=== PATIENT | female | born 1955 | race Two or more races ===

== ENCOUNTER 2017-03-23 09:31 | Inpatient (IN) | payer MEDICARE, OTHER ==
[2017-03-18 12:45] VITALS: BMI 37.8
[2017-03-23] MEDS ORDERED: Lactated Ringer's 1,000 ML IV ONE ×3 (10:48→13:51)
[2017-03-23] MEDS ORDERED: ceFAZolin IV 2 gm in Dextrose 1 GM/50 ML BAG IVPB ONE (10:56)
[2017-03-23] MEDS ORDERED: Bupivacaine HCl 0.5% PF (10 ml) Inj ONE (10:56)
[2017-03-23] MEDS ORDERED: Lidocaine 1% Inj (20ml) ONE (10:57)
[2017-03-23] MEDS ORDERED: Propofol 10 mg/ml Inj (20 ML) ONE (11:32)
[2017-03-23] MEDS ORDERED: Midazolam 2 MG/2 ML VIAL ONE (11:32)
[2017-03-23] MEDS ORDERED: Phenylephrine 10 mg/ml Inj ONE (12:22)
[2017-03-23] MEDS: HYDROmorphone 0.5 mg/0.5 ml ISec IVP PRN ×2 (13:04→13:29)
[2017-03-23] MEDS ORDERED: ceFAZolin 1 GM in Sodium Chloride 0.9% 50 ML IVPB SCH (14:00)
[2017-03-23 16:58] VITALS: RESP 20
--- NOTE | 2017-03-23 18:07 | OP ---
PROCEDURE DATE: 03/23/2017 PREOPERATIVE DIAGNOSIS: A 10 x 14 cm soft tissue mass on the left arm. POSTOPERATIVE DIAGNOSIS: A 10 x 14 cm soft tissue mass on the left arm. PROCEDURE: Wide deep excision (radical resection) of soft tissue neoplasm on the left arm. SURGEON: Jose Eduardo Hernandez MD TYPE OF ANESTHESIA: General. ESTIMATED BLOOD LOSS: 80 mL POSTOPERATIVE CONDITION: Stable. 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 She is taken in staged repair and will have the left side repaired today. DESCRIPTION OF PROCEDURE: The patient was taken to the operating room, general anesthesia was administered and the left shoulder arm, forearm and left upper extremity were prepped and draped. A generous elliptical incision was made in the arm surrounding the mass. Tissue flaps were raised using the Bovie and a large resection was performed down to the facial layer. Bleeding was controlled using the Bovie. The basilic vein was now noted to be bleeding and was repaired with a Prolene suture. The wound was irrigated with copious amount of saline solution. An approximately 56 sq cm adjacent tissue transfer closure was performed by widely mobilizing the tissue flaps and using an advancement flap closure of multiple layers of Monocryl, subcuticular Monocryl and skin clips. The patient tolerated the procedure well, returned to recovery room in stable condition. ADDENDUM: A Rafi-Preciado Drain was left in the wound and then brought out through a lateral stab wound. Jose Eduardo Hernandez MD
[2017-03-23] MEDS: ceFAZolin IV 1 gm in Dextrose 1 GM/50 ML BAG IVPB SCH (22:38)
[2017-03-23] MEDS: Oxycodone/Acetaminophen 5/325 mg Tab PO PRN (22:40)
[2017-03-23] MEDS: Enoxaparin 30 mg Syringe SC SCH (22:42)
[2017-03-24] MEDS: ceFAZolin IV 1 gm in Dextrose 1 GM/50 ML BAG IVPB SCH ×3 (06:13→21:38)
[2017-03-24 06:27] LABS: BASO # 0.1 K/uL (0.0-0.2); BASO % 0.7 % (0.0-2.0); EOS # 0.7 K/uL (0.0-0.7); EOS % 9.2 % (0.0-4.0); HEMATOCRIT 29.9 % (34.0-47.0); LYMPH # 1.4 K/uL (1.0-4.3); LYMPH % 17.1 % (20.0-40.0); MEAN CORPUSCULAR HEMOGLOBIN 29.3 pg (27.0-31.0); MEAN CORPUSCULAR HGB CONC 32.5 g/dL (33.0-37.0); MEAN PLATELET VOLUME 9.9 fL (7.2-11.7); MONO % 12.8 % (0.0-10.0); RED CELL DISTRIBUTION WIDTH 13.6 % (11.5-14.5)
[2017-03-24 07:31] LABS: POTASSIUM 4.7 mmol/L (3.6-5.2)
[2017-03-24 07:35] LABS: CALCIUM 8.4 mg/dl (8.6-10.4)
[2017-03-24] MEDS: Enoxaparin 30 mg Syringe SC SCH ×2 (09:43→21:38)
[2017-03-24] MEDS: Oxycodone/Acetaminophen 5/325 mg Tab PO PRN (14:31)
--- NOTE | 2017-03-24 14:39 | CP.PCM.CON ---
History of Present Illness - History of Present Illness History of Present Illness: CC: resection of wound left arm tumor HPI: mobidly obese AA woman s/p OR pt is mostly drowsy, does not give any information Review of Systems - Review of Systems Systems not reviewed;Unavailable: Acuity of Condition Past Patient History - Past Medical History & Family History Past Medical History?: Yes - Past Social History Smoking Status: Never Smoked - CARDIAC Hx Cardiac Disorders: Yes Hx Angina: Yes Hx Cardia Arrhythmia: Yes (Pacemaker) Hx Hypertension: Yes Hx Pacemaker: Yes - PULMONARY Hx Respiratory Disorders: Yes Hx Bronchitis: Yes - NEUROLOGICAL Hx Neurological Disorder: Yes Hx Dizziness: Yes - HEENT Hx HEENT Problems: No - RENAL Hx Chronic Kidney Disease: No - ENDOCRINE/METABOLIC Hx Endocrine Disorders: No - HEMATOLOGICAL/ONCOLOGICAL Hx Blood Disorders: No - INTEGUMENTARY Hx Dermatological Problems: No - MUSCULOSKELETAL/RHEUMATOLOGICAL Hx Falls: No - GASTROINTESTINAL Hx Gastrointestinal Disorders: No - GENITOURINARY/GYNECOLOGICAL Hx Genitourinary Disorders: No - PSYCHIATRIC Hx Substance Use: No - SURGICAL HISTORY Hx Surgeries: No Hx Cardiac Catheterization: Yes (14 years ago) Hx Joint Replacement: Yes (Right knee) Other/Comment: Hx right knee sx - ANESTHESIA Hx Anesthesia: Yes Hx Anesthesia Reactions: No Hx Malignant Hyperthermia: No Has any member of the family had a problem w/ anesthesia?: No Meds Allergies/Adverse Reactions: Allergies Allergy/AdvReac Type Severity Reaction Status Date / Time No Known Allergies Allergy Verified 02/07/15 18:02 - Medications Medications: Current Medications Docusate Sodium (Colace) 100 mg PO BID [facility] Last Admin: 03/24/17 09:43 Dose: 100 mg Enoxaparin Sodium (Lovenox) 30 mg SC 1000,2200 [facility] Last Admin: 03/24/17 09:43 Dose: 30 mg Cefazolin Sodium/Dextrose (Ancef Iv 1 Gm Duplex) 1 gm in 50 mls @ 100 mls/hr IVPB Q8H [facility] Last Admin: 03/24/17 14:31 Dose: 100 mls/hr Ondansetron HCl (Zofran Inj) 4 mg IVP Q6 PRN PRN Reason: Nausea/Vomiting Oxycodone/Acetaminophen (Percocet 5/325 Mg Tab) 2 tab PO Q4H PRN PRN Reason: pain Stop: 03/26/17 12:37 Last Admin: 03/24/17 14:31 Dose: 2 tab Pantoprazole Sodium (Protonix Inj) 40 mg IVP DAILY [facility] Last Admin: 03/24/17 09:47 Dose: 40 mg Physical Exam - Constitutional Appears: No Acute Distress - Eye Exam Eye Exam: EOMI, Normal appearance, PERRL Pupil Exam: NORMAL ACCOMODATION, PERRL - Respiratory Exam Respiratory Exam: Clear to Auscultation Bilateral, NORMAL BREATHING PATTERN - GI/Abdominal Exam GI & Abdominal Exam: Normal Bowel Sounds, Soft. absent: Tenderness - Rectal Exam Rectal Exam: Deferred Results - Vital Signs Recent Vital Signs: Last Vital Signs Temp 98.0 F 03/24/17 08:56 Pulse 78 03/24/17 08:56 Resp 20 03/24/17 08:56 BP 117/71 03/24/17 08:56 Pulse Ox 98 03/24/17 08:56 - Labs Result Diagrams: 03/24/17 06:21 03/24/17 06:21 Labs: Laboratory Results - last 24 hr 03/24/17 03/24/17 06:21 06:21 WBC 8.0 RBC 3.32 L Hgb 9.7 L D Hct 29.9 L MCV 90.0 MCH 29.3 MCHC 32.5 L RDW 13.6 Plt Count 154 MPV 9.9 Neut % (Auto) 60.2 Lymph % (Auto) 17.1 L [place] % (Auto) 12.8 H Eos % (Auto) 9.2 H Baso % (Auto) 0.7 Neut # 4.8 Lymph # 1.4 [place] # 1.0 H Eos # 0.7 Baso # 0.1 Sodium 132 Potassium 4.7 Chloride 97 L Carbon Dioxide 26 Anion Gap 14 BUN 37 H Creatinine 1.7 H Est GFR ( Amer) 37 Est GFR (Non-Af Amer) 30 Random Glucose 96 Calcium 8.4 L Assessment & Plan (1) S/P skin neoplasm resection Status: Acute (2) Obesity (BMI 30-39.9) Status: Chronic
--- NOTE | 2017-03-24 23:28 | CP.PCM.PN ---
Subjective - Date & Time of Evaluation Date of Evaluation: 03/24/17 Time of Evaluation: 10:50 - Subjective Subjective: Pt seen & examined, s/p surgery on left ar, she is refusing second follow up surgery for resection of tumor, her B.P is on lower side despite being Hypertensive, i adjusted the medications Objective - Vital Signs/Intake and Output Vital Signs (last 24 hours): Temp Pulse Resp BP Pulse Ox 97.7 F 77 20 117/58 L 96 03/24/17 16:03 03/24/17 16:03 03/24/17 16:03 03/24/17 17:39 03/24/17 16:03 Intake and Output: 03/24/17 03/25/17 18:59 06:59 Intake Total 350 Output Total 2 Balance 348 - Medications Medications: Current Medications Allopurinol (Zyloprim) 300 mg PO DAILY [facility] Docusate Sodium (Colace) 100 mg PO BID [facility] Last Admin: 03/24/17 17:39 Dose: Not Given Enoxaparin Sodium (Lovenox) 30 mg SC 1000,2200 [facility] Last Admin: 03/24/17 21:38 Dose: 30 mg Furosemide (Lasix) 20 mg PO DAILY [facility] Last Admin: 03/24/17 17:39 Dose: Not Given Cefazolin Sodium/Dextrose (Ancef Iv 1 Gm Duplex) 1 gm in 50 mls @ 100 mls/hr IVPB Q8H [facility] Last Admin: 03/24/17 21:38 Dose: 100 mls/hr Methotrexate (Methotrexate) 2.5 mg PO QWK [facility] Oxycodone/Acetaminophen (Percocet 5/325 Mg Tab) 2 tab PO Q4H PRN PRN Reason: pain Stop: 03/26/17 12:37 Last Admin: 03/24/17 14:31 Dose: 2 tab Pantoprazole Sodium (Protonix Inj) 40 mg IVP DAILY [facility] Last Admin: 03/24/17 09:47 Dose: 40 mg Rosuvastatin Calcium (Crestor) 5 mg PO HS [facility] Last Admin: 03/24/17 21:38 Dose: 5 mg Sotalol HCl (Betapace) 80 mg PO BID [facility] Last Admin: 03/24/17 17:39 Dose: Not Given - Labs Labs: 03/24/17 06:21 03/24/17 06:21 - Constitutional Appears: No Acute Distress - Head Exam Head Exam: ATRAUMATIC, NORMAL INSPECTION, NORMOCEPHALIC - Eye Exam Eye Exam: EOMI, Normal appearance, PERRL Pupil Exam: NORMAL ACCOMODATION, PERRL - Respiratory Exam Respiratory Exam: Decreased Breath Sounds, Rales, Rhonchi - Cardiovascular Exam Cardiovascular Exam: REGULAR RHYTHM, +S1, +S2. absent: Murmur - GI/Abdominal Exam GI & Abdominal Exam: Soft, Normal Bowel Sounds. absent: Tenderness - Rectal Exam Rectal Exam: Deferred Assessment and Plan (1) S/P skin neoplasm resection Status: Acute (2) Obesity (BMI 30-39.9) Status: Chronic (3) HTN (hypertension) Assessment & Plan: D/C norvasc Status: Acute
[2017-03-25] MEDS: ceFAZolin IV 1 gm in Dextrose 1 GM/50 ML BAG IVPB SCH ×2 (06:50→13:48)
[2017-03-25 07:23] LABS: BASO % 0.4 % (0.0-2.0); EOS # 0.6 K/uL (0.0-0.7); EOS % 9.9 % (0.0-4.0); HEMATOCRIT 28.7 % (34.0-47.0); LYMPH # 1.2 K/uL (1.0-4.3); LYMPH % 19.2 % (20.0-40.0); MEAN CELL VOLUME 88.7 fL (81.0-99.0); MEAN CORPUSCULAR HEMOGLOBIN 29.2 pg (27.0-31.0); MEAN PLATELET VOLUME 9.4 fL (7.2-11.7); MONO % 15.9 % (0.0-10.0); RED CELL DISTRIBUTION WIDTH 13.6 % (11.5-14.5); WHITE BLOOD COUNT 6.2 K/uL (4.8-10.8)
[2017-03-25 07:57] LABS: POTASSIUM 3.9 mmol/L (3.6-5.2)
[2017-03-25 08:00] LABS: CALCIUM 8.8 mg/dl (8.6-10.4)
[2017-03-25 08:55] VITALS: TEMP 98
[2017-03-25] MEDS: Enoxaparin 30 mg Syringe SC SCH (10:22)
[2017-03-25] MEDS: Oxycodone/Acetaminophen 5/325 mg Tab PO PRN (11:51)
[2017-03-25 16:07] VITALS: BP 187/75; PULSE 83; O2SAT 98
[2017-03-25] MEDS ORDERED: Sotalol 40 mg Tab PO SCH (18:00)
--- NOTE | 2017-03-25 23:01 | CP.PCM.DIS ---
Provider - Provider Date of Admission: 03/23/17 12:36 Attending physician: Jose Eduardo Hernandez MD Diagnosis - Discharge Diagnosis (1) S/P skin neoplasm resection Status: Acute (2) Obesity (BMI 30-39.9) Status: Chronic (3) HTN (hypertension) Status: Acute Hospital Course - Lab Results Lab Results: Most Recent Lab Values WBC 6.2 K/uL (4.8-10.8) 03/25/17 07:07 RBC 3.23 Mil/uL (3.80-5.20) L 03/25/17 07:07 Hgb 9.5 g/dL (11.0-16.0) L 03/25/17 07:07 Hct 28.7 % (34.0-47.0) L 03/25/17 07:07 MCV 88.7 fL (81.0-99.0) 03/25/17 07:07 MCH 29.2 pg (27.0-31.0) 03/25/17 07:07 MCHC 33.0 g/dL (33.0-37.0) 03/25/17 07:07 RDW 13.6 % (11.5-14.5) 03/25/17 07:07 Plt Count 161 K/uL (130-400) 03/25/17 07:07 MPV 9.4 fL (7.2-11.7) 03/25/17 07:07 Neut % (Auto) 54.6 % (50.0-75.0) 03/25/17 07:07 Lymph % (Auto) 19.2 % (20.0-40.0) L 03/25/17 07:07 [place] % (Auto) 15.9 % (0.0-10.0) H 03/25/17 07:07 Eos % (Auto) 9.9 % (0.0-4.0) H 03/25/17 07:07 Baso % (Auto) 0.4 % (0.0-2.0) 03/25/17 07:07 Neut # 3.4 K/uL (1.8-7.0) 03/25/17 07:07 Lymph # 1.2 K/uL (1.0-4.3) 03/25/17 07:07 [place] # 1.0 K/uL (0.0-0.8) H 03/25/17 07:07 Eos # 0.6 K/uL (0.0-0.7) 03/25/17 07:07 Baso # 0.0 K/uL (0.0-0.2) 03/25/17 07:07 Sodium 132 mmol/L (132-148) 03/25/17 07:07 Potassium 3.9 mmol/L (3.6-5.2) 03/25/17 07:07 Chloride 99 mmol/L (98-107) 03/25/17 07:07 Carbon Dioxide 22 mmol/L (22-30) 03/25/17 07:07 Anion Gap 15 (10-20) 03/25/17 07:07 BUN 38 mg/dL (7-17) H 03/25/17 07:07 Creatinine 1.5 mg/dL (0.7-1.2) H 03/25/17 07:07 Est GFR ( Amer) 42 03/25/17 07:07 Est GFR (Non-Af Amer) 35 03/25/17 07:07 Random Glucose 102 mg/dL (65-105) 03/25/17 07:07 Calcium 8.8 mg/dl (8.6-10.4) 03/25/17 07:07 Discharge Exam - Head Exam Head Exam: ATRAUMATIC, NORMAL INSPECTION, NORMOCEPHALIC Discharge Plan - Follow Up Plan Condition: GOOD Disposition: HOME/ ROUTINE Instructions: Pain Management After Surgery (DC), Excision of Skin Lesion (DC) Additional Instructions: Follow up with Dr Mary Murry 03/30 9:45am Keep dressing dry will remove in office percocet for pain Referrals: Jose Eduardo Hernandez MD [Staff Provider] -
== END 2017-03-25 15:50 | disposition home or self-care (01) | DRG 572 ==
LOC: C.SDS 09:31 → C.9S 12:36 → C.6T 16:24
PROVIDERS: ADMIT Surgery; ATTEND Surgery
PROC: 0JBF0ZZ Excision of Left Upper Arm Subcutaneous Tissue and Fascia, Open Approach (ICD-10-PCS; principal; 2017-03-23 10:00)
DX: D17.22 Benign lipomatous neoplasm of skin and subcutaneous tissue of left arm (principal); I10 Essential (primary) hypertension; E66.9 Obesity, unspecified; Z68.37 Body mass index [BMI] 37.0-37.9, adult; Z95.0 Presence of cardiac pacemaker; Z96.60 Presence of unspecified orthopedic joint implant

== ENCOUNTER 2017-05-19 09:27 | Emergency (ER) | payer MEDICARE, OTHER ==
[2017-05-19 09:27] VITALS: BMI 37.8
[2017-05-19 10:22] LABS: BASO % 0.3 % (0.0-2.0); EOS # 0.4 K/uL (0.0-0.7); EOS % 5.1 % (0.0-4.0); HEMATOCRIT 30.8 % (34.0-47.0); LYMPH % 12.2 % (20.0-40.0); MEAN CORPUSCULAR HEMOGLOBIN 28.6 pg (27.0-31.0); MEAN CORPUSCULAR HGB CONC 33.1 g/dL (33.0-37.0); MEAN PLATELET VOLUME 8.8 fL (7.2-11.7); MONO # 0.9 K/uL (0.0-0.8); MONO % 10.8 % (0.0-10.0); RED CELL DISTRIBUTION WIDTH 15.3 % (11.5-14.5); WHITE BLOOD COUNT 8.3 K/uL (4.8-10.8)
[2017-05-19 10:34] LABS: MEAN CELL VOLUME 86.4 fL (81.0-99.0)
[2017-05-19 10:36] LABS: ALB/GLOB RATIO 1.2 (1.0-2.1); BILIRUBIN,TOTAL 0.7 mg/dL (0.2-1.3); CALCIUM 8.4 mg/dl (8.6-10.4); POTASSIUM 3.4 mmol/L (3.6-5.2); TOTAL PROTEIN 6.8 g/dL (6.3-8.3)
--- NOTE | 2017-05-19 10:42 | C.PDOC ---
History Of Present Illness 61 year old female sent to the ED by her PMD Dr. Christina for evaluation of left arm pain. Patient reports left arm became painful over the weekend. Dr. Christina apparently did ultrasound at office which showed possible abscess. Patient is S /P surgery for removal of a mass in her upper left arm, done by Dr. Hernandez on 03/23/17. Patient denies fever, injuries, CP, SOB, rash, sensory changes. Time Seen by Provider: 05/19/17 09:47 Chief Complaint (Nursing): Upper Extremity Problem/Injury History Per: Patient History/Exam Limitations: no limitations Onset/Duration Of Symptoms: Days Current Symptoms Are (Timing): Still Present Quality: "Pain" Severity: Moderate Additional History Per: Patient Past Medical History Reviewed: Historical Data, Nursing Documentation, Vital Signs Vital Signs: Last Vital Signs Temp 98.0 F 05/19/17 16:00 Pulse 75 05/19/17 16:00 Resp 18 05/19/17 16:00 BP 140/74 05/19/17 16:00 Pulse Ox 96 05/19/17 16:02 - Medical History PMH: Bronchitis, Cardia Arrhythmia (Pacemaker), HTN Surgical History: Endoscopy, Pacemaker (2011) - [facility] Procedures EXCISION OF L UP ARM SUBCU/FASCIA, OPEN APPROACH (03/23/17) Family History: States: No Known Family Hx - Social History Hx Alcohol Use: No Hx Substance Use: No Review Of Systems Except As Marked, All Systems Reviewed And Found Negative. Constitutional: Negative for: Fever, Chills Cardiovascular: Negative for: Chest Pain, Palpitations Respiratory: Negative for: Cough, Shortness of Breath Gastrointestinal: Negative for: Nausea, Vomiting, Abdominal Pain Musculoskeletal: Positive for: Arm Pain (Left ) Skin: Negative for: Rash Neurological: Negative for: Weakness, Numbness Physical Exam - Physical Exam Appears: Well, Non-toxic, No Acute Distress, Other (Morbidly obese) Skin: Normal Color, Warm, Dry Head: Normacephalic Oral Mucosa: Moist Neck: Supple Cardiovascular: Rhythm Regular Respiratory: Normal Breath Sounds, No Rales, No Rhonchi, No Wheezing Gastrointestinal/Abdominal: Normal Exam, Bowel Sounds, Soft, No Tenderness, Other (Obese) Back: No CVA Tenderness Extremity: Normal ROM, Capillary Refill (< 2 seconds all digits ), No Deformity , No Swelling, Other (Left upper anterior arm approx 6 cm well healed surgical scar with small central eschar, mildly tender to palpation, (+) mild induration , no erythema/drainage. ) Pulses: Left Radial: Normal, Right Radial: Normal Neurological/Psych: Oriented x3, Normal Motor, Normal Sensation ED Course And Treatment - Laboratory Results Result Diagrams: 05/19/17 10:16 05/19/17 10:16 O2 Sat by Pulse Oximetry: 96 (On RA) Pulse Ox Interpretation: Normal - CT Scan/US CT extremities Other Rad Studies (CT/US): Interpreted By Me, Read By Radiologist, Radiology Report Reviewed CT/US Interpretation: ADDENDUM: Please note error in the original dictation. Fluid collection suspected to reflect an abscess resides within the subcutaneous soft tissues of the upper extremity at the level of the mid forearm ventral and lateral. [ Addendum Report Added by Shirley Knox MD at 05/19/2017 13:32:23 ]. Indication: Evaluate for abscess. CT of the left upper extremity with IV contrast. Comparison: None available. Technique: Noncontrast axial images of the left upper extremity, forearm. Sagittal and coronal reformatted images were generated and reviewed. This CT exam was performed using 1 or more of the falling dose reduction techniques: Automated exposure control, adjustment of the MAA and/or kV according to patient size, and /or use of iterative reconstruction technique. Total exam DLP: 400.66. Contrast: 75 mL Visipaque IV. Findings: There is an approximately 2.7 x 3.6 cm collection noted within the subcutaneous soft tissues of the upper extremity , midforearm medially. This collection appears consistent with fluid with mild peripheral increased density ; possibly abscess. Adjacent subcutaneous edema evident. No acute displaced fracture. No dislocation. Impression: 2.7 x 3.6 cm collection within the subcutaneous soft tissues of the upper extremity within the mid arm medially, possibly abscess. Adjacent subcutaneous edema evident. Correlate clinically. Progress Note: Plan: Blood work, CT ext ordered and reviewed. Patient states she does not want to be seen by original surgeon Dr. Hernandez - will discuss with surgery bell spinner sousaphones. 1:45pm- Discussed patient with surgery resident, will call me back. 3:55pm- Patient is s/p drainage of abscess by surgery resident , wound culture obtained by them. Will give patient PO antibiotics and instructed her to follow up with Dr. Gomez in the office within 1 week. She understands she should return to ED if symptoms worsen. Reassessment Condition: Improved Disposition Counseled Patient/Family Regarding: Studies Performed, Diagnosis, Need For Followup, Rx Given - Disposition Referrals: Landen Gomez MD [Staff Provider] - Nathanael Christina DO [Staff Provider] - Disposition: HOME/ ROUTINE Disposition Time: 16:00 Condition: STABLE Additional Instructions: FOLLOW UP WITH DR GOMEZ IN THE OFFICE WITHIN 1 WEEK RETURN TO ER IF SYMPTOMS WORSEN Prescriptions: Cephalexin [Keflex] 500 mg PO BID #14 capsule Sulfamethoxazole/Trimethoprim [Bactrim DS 800 mg-160 mg] 1 tab PO BID #14 tab Instructions: Abscess (ED) Forms: [employer] (Arabic) Print Language: WOLOF - POA Present On Arrival: None - Clinical Impression Clinical Impression: Abscess - Scribe Statement The provider has reviewed the documentation as recorded by the Scribe Goran Schaeffer All medical record entries made by the Scribe were at my direction and personally dictated by me. I have reviewed the chart and agree that the record accurately reflects my personal performance of the history, physical exam, medical decision making, and the department course for this patient. I have also personally directed, reviewed, and agree with the discharge instructions and disposition.
[2017-05-19] MEDS ORDERED: Iodixanol 320 MG/ML 100 ML BOTTLE IV ONE (11:29)
--- NOTE | 2017-05-19 13:27 | CT ---
Indication: Evaluate for abscess CT of the left upper extremity with IV contrast Comparison: None available Technique: Noncontrast axial images of the left upper extremity, forearm. Sagittal and coronal reformatted images were generated and reviewed. This CT exam was performed using 1 or more of the falling dose reduction techniques: Automated exposure control, adjustment of the MAA and/or kV according to patient size, and/or use of iterative reconstruction technique. Total exam DLP: 400.66 Contrast: 75 mL Visipaque IV Findings: There is an approximately 2.7 x 3.6 cm collection noted within the subcutaneous soft tissues of the upper extremity, midforearm medially. This collection appears consistent with fluid with mild peripheral increased density ; possibly abscess. Adjacent subcutaneous edema evident. No acute displaced fracture. No dislocation. Impression: 2.7 x 3.6 cm collection within the subcutaneous soft tissues of the upper extremity within the mid arm medially, possibly abscess. Adjacent subcutaneous edema evident. Correlate clinically.
[2017-05-19] MEDS ORDERED: Lidocaine 1% 20 MG/2 ML PF AMP SC ONE (15:13)
[2017-05-19] MEDS ORDERED: Lidocaine 1% Inj (20ml) ONE (15:13)
[2017-05-19 15:21] VITALS: RESP 18
[2017-05-19] MEDS ORDERED: Tmp-Smz 800 mg-160 mg DS Tab PO STA (15:57)
--- NOTE | 2017-05-19 15:57 | CP.PCM.CON ---
History of Present Illness - History of Present Illness History of Present Illness: Surgery Consult note. Dr. Gomez. 61yo F with PMHx of HTN here with left upper extremity pain and drainage. She states that she had left upper extremity lipoma [place] [address] Chand. She requests to have a different surgeon consulted. She states that she noted some pain and clear/pink fluid draining from the left upper extremity wound for the past 5 days. She went to her PMD this morning and was told to come to the ER for further evaluation. Denies Fevers, chills. no numbness or paresthesias. No CP/SOB. no N/V/D. No headaches. PMD: Dr. Farmer PMHx: HTN PSHx: Pacemaker 2011, R Knee replacement 2009, left upper extremity lipoma removal March 2017 NKDA Past Patient History - Past Medical History & Family History Past Medical History?: Yes - Past Social History Smoking Status: Never Smoked - CARDIAC Hx Cardia Arrhythmia: Yes () Hx Hypertension: Yes Hx Pacemaker: Yes (2011) - PULMONARY Hx Bronchitis: Yes - NEUROLOGICAL Hx Neurological Disorder: Yes Hx Dizziness: Yes - HEENT Hx HEENT Problems: No - RENAL Hx Chronic Kidney Disease: No - ENDOCRINE/METABOLIC Hx Endocrine Disorders: No - HEMATOLOGICAL/ONCOLOGICAL Hx Blood Disorders: No - INTEGUMENTARY Hx Dermatological Problems: No - MUSCULOSKELETAL/RHEUMATOLOGICAL Hx Falls: No - GASTROINTESTINAL Hx Gastrointestinal Disorders: No - GENITOURINARY/GYNECOLOGICAL Hx Genitourinary Disorders: No - PSYCHIATRIC Hx Substance Use: No - SURGICAL HISTORY Hx Surgeries: Yes - ANESTHESIA Hx Anesthesia: Yes Hx Anesthesia Reactions: No Hx Malignant Hyperthermia: No Meds Home Medications: Home Medication List Medication Instructions Recorded Confirmed Type Cephalexin [Keflex] 500 mg PO BID #14 capsule 05/19/17 Rx Sulfamethoxazole/Trimethoprim 1 tab PO BID #14 tab 05/19/17 Rx [Bactrim DS 800 mg-160 mg] Allergies/Adverse Reactions: Allergies Allergy/AdvReac Type Severity Reaction Status Date / Time No Known Allergies Allergy Verified 05/19/17 09:32 Physical Exam - Constitutional Appears: Non-toxic, No Acute Distress - Head Exam Head Exam: ATRAUMATIC, NORMAL INSPECTION, NORMOCEPHALIC - Eye Exam Eye Exam: EOMI - ENT Exam ENT Exam: Mucous Membranes Moist - Respiratory Exam Respiratory Exam: NORMAL BREATHING PATTERN. absent: Accessory Muscle Use, Respiratory Distress - Cardiovascular Exam Cardiovascular Exam: absent: JVD - GI/Abdominal Exam GI & Abdominal Exam: Soft. absent: Distended, Firm, Guarding, Tenderness - Extremities Exam Extremities exam: Negative for: calf tenderness Additional comments: Left upper extremity: proximal brachial region: 8cm well healed incision noted, dried scab in the middle of the incision. Skin margins well approximated. No erythema, no induration. Slightly raised area approximately 3x4cm palpable. - Neurological Exam Neurological exam: Alert, Oriented x3 - Psychiatric Exam Psychiatric exam: Anxious - Skin Skin Exam: Dry, Intact, Normal Color, Warm Results - Vital Signs Recent Vital Signs: Last Vital Signs Temp 97.9 F 05/19/17 15:21 Pulse 76 05/19/17 15:21 Resp 18 05/19/17 15:21 BP 142/77 05/19/17 15:21 Pulse Ox 97 05/19/17 15:21 - Labs Result Diagrams: 05/19/17 10:16 05/19/17 10:16 Labs: Laboratory Results - last 24 hr 05/19/17 05/19/17 10:16 10:16 WBC 8.3 RBC 3.56 L Hgb 10.2 L Hct 30.8 L MCV 86.4 D MCH 28.6 MCHC 33.1 RDW 15.3 H Plt Count 176 MPV 8.8 Neut % (Auto) 71.6 Lymph % (Auto) 12.2 L [place] % (Auto) 10.8 H Eos % (Auto) 5.1 H Baso % (Auto) 0.3 Neut # 6.0 Lymph # 1.0 [place] # 0.9 H Eos # 0.4 Baso # 0.0 Sodium 138 Potassium 3.4 L Chloride 102 Carbon Dioxide 30 Anion Gap 9 L BUN 34 H Creatinine 1.2 Est GFR ( Amer) 55 Est GFR (Non-Af Amer) 45 Random Glucose 106 H Calcium 8.4 L Total Bilirubin 0.7 AST 29 ALT 28 Alkaline Phosphatase 96 Total Protein 6.8 Albumin 3.7 Globulin 3.1 Albumin/Globulin Ratio 1.2 Assessment & Plan - Assessment and Plan (Free Text) Assessment: 61yo F with left upper extremity seroma s/p excision of lipoma on March 23, [address] Hernandez - Written consent obtained and on chart. Performed a bedside needle aspiration of the seroma - cleaned area with clorhexidine swab - ~3cc of 1% lidocaine without epi used for local anesthesia - Approximately 18cc of serosang fluid aspirated, wound culture sent. - patient tolerated procedure well. - Discharge home with PO abx - Follow up with Dr. Gomez in his office tomorrow. (Call for appointment) further recs as per Dr. Jason Riley PGY1 surgery pager: [phone]
[2017-05-19 16:00] VITALS: O2SAT 96
[2017-05-19] MEDS ORDERED: Tmp-Smz 800 mg-160 mg DS Tab ONE (16:02)
[2017-05-19 16:03] VITALS: BP 140/74; PULSE 75; TEMP 98
== END 2017-05-19 16:09 | disposition home or self-care (01) ==
LOC: C.ER 09:27
DX: L76.34 Postprocedural seroma of skin and subcutaneous tissue following other procedure (principal); Y84.8 Other medical procedures as the cause of abnormal reaction of the patient, or of later complication, without mention of misadventure at the time of the procedure
CPT/HCPCS: 10160; 73201; 80053; 85025; 87040; 87070; 96374; 99285; J2270; Q9967

== ENCOUNTER 2018-10-19 14:34 | Observation (INO) | payer MEDICARE, MEDICAID ==
[2018-10-19 14:35] VITALS: BMI 37.8
--- NOTE | 2018-10-19 15:02 | C.PDOC ---
History Of Present Illness 63 y/o female,w/PMhx of HTN, cardiac arrhythmia ( with pacemaker), hypercholesterolemia, brought to ER by ALS for evaluation of chest pain and dizziness which occurred today.Patient states that the chest pain began at 1 pm. Patient reports that the pain is in the center of chest without radiation. She describes the pain as pressure-like. After she had the chest pain, she began having lightheadedness and pre-syncopal episode.She states that she did not have fall.She was brought in by ambulance and she was treated with ASA 325 mg PO and fluids. Patient reports that pain has mostly resolved. Denies having weakness, facial droop, slurred speech, fever,chills, neck stiffness, night sweats, nausea, vomiting, bowel/bladder incontinence, dark/bloody stools, urinary complaints, and genitourinary complaints. PMD: Referral Specialist: Time Seen by Provider: 10/19/18 14:38 Chief Complaint (Nursing): Chest Pain History Per: Patient History/Exam Limitations: no limitations Onset/Duration Of Symptoms: Hrs Current Symptoms Are (Timing): Still Present Severity: Moderate Quality: Pressure Past Medical History Reviewed: Historical Data, Nursing Documentation, Vital Signs Vital Signs: Last Vital Signs Temp 97.5 F L 10/19/18 14:58 Pulse 60 10/19/18 14:58 Resp 18 10/19/18 14:58 BP 128/42 L 10/19/18 14:58 Pulse Ox 97 10/19/18 14:58 Primary Care Provider: Nathanael Christina - Medical History PMH: Arthritis, Bronchitis, Cardia Arrhythmia (Pacemaker), HTN Denies: Chronic Kidney Disease Surgical History: Endoscopy, Pacemaker (2011) - [facility] Procedures EXCISION OF L UP ARM SUBCU/FASCIA, OPEN APPROACH (03/23/17) Family History: States: No Known Family Hx - Social History Hx Alcohol Use: No Hx Substance Use: No Review Of Systems Except As Marked, All Systems Reviewed And Found Negative. Constitutional: Negative for: Fever, Chills, Sweats, Weakness Eyes: Negative for: Pain, Vision Change ENT: Negative for: Ear Pain, Ear Discharge, Nose Congestion, Mouth Pain Cardiovascular: Positive for: Chest Pain. Negative for: Palpitations Respiratory: Negative for: Cough, Shortness of Breath, SOB with Excertion Gastrointestinal: Negative for: Nausea, Vomiting, Abdominal Pain, Diarrhea, Constipation, Melena, Hematochezia, Hematemesis Genitourinary: Negative for: Dysuria, Frequency, Incontinence, Hematuria, Vaginal Bleeding Musculoskeletal: Negative for: Neck Pain, Shoulder Pain, Arm Pain, Back Pain, Hand Pain, Leg Pain Skin: Negative for: Rash, Lesions Neurological: Positive for: Dizziness. Negative for: Weakness, Numbness, Change in Speech, Headache Physical Exam - Physical Exam Appears: Well, Non-toxic, No Acute Distress Skin: Normal Color, Warm, Dry Head: Atraumatic, Normacephalic Eye(s): bilateral: Normal Inspection, PERRL, EOMI Nose: Normal Oral Mucosa: Moist Neck: Normal, Normal ROM, No Midline Cervical Tenderness, No Paracervical Tenderness, Supple, Other (no meningeal signs) Chest: Symmetrical, Other (pacemaker is well-healed) Cardiovascular: Rhythm Regular Respiratory: Normal Breath Sounds, No Rales, No Rhonchi, No Wheezing Gastrointestinal/Abdominal: Normal Exam, Soft, No Tenderness, No Mass, No Distention, No Guarding, No Rebound Back: Normal Inspection, No CVA Tenderness, No Vertebral Tenderness Extremity: Normal ROM, No Tenderness, No Pedal Edema Neurological/Psych: Oriented x3, Normal Speech, Normal Cognition, No Cerebellar Signs, Normal Motor, Normal Sensation Extremity: Right: No Drift, Left: No Drift ED Course And Treatment - Laboratory Results Result Diagrams: 10/19/18 16:00 10/19/18 16:00 O2 Sat by Pulse Oximetry: 97 (RA) Pulse Ox Interpretation: Normal - Other Rad CXR X-Ray: Viewed By Me, Read By Radiologist Interpretation: Date of service: 10/19/2018. HISTORY: cp. COMPARISON: 03/18/2017. TECHNIQUE: 1 view obtained. FINDINGS: LUNGS: No active pulmonary disease. PLEURA: No significant pleural effusion identified, no pneumothorax apparent. CARDIOVASCULAR: There is presence of aortic atherosclerotic calcification on x-ray. Mild cardiomegaly-similar oval top-normal pulmonary vasculature. Dual lead pacemaker device in place. No change regarding it appreciated. OSSEOUS STRUCTURES: No significant abnormalities. VISUALIZED UPPER ABDOMEN: Normal. OTHER FINDINGS: None. IMPRESSION: No interval acute cardiopulmonary pathology noted. Findings as above. Medical Decision Making Medical Decision Makin63 y/o female,w/PMhx of HTN, cardiac arrhythmia ( with pacemaker), hypercholesterolemia, brought to ER by ALS for evaluation of chest pain and dizziness which occurred today. Dizziness described as a lightheadedness, non vertigo like, without any trauma. Normal neuro exam, no FND noted on exam. No cerebellar signs. Non pleurtic nature of chest pain without any recent leg swelling / venous stasis or trauma / surgery. Plan: --Labs --ECG --CXR --IV Fluids Medium Risk Heart Score Heart Score: Age: 2 RF: 1 Story: 1 Ek troponin: pending EKG: NSR 61 bpm No STEMI 1710 labs, CXR unremarkable pt requesting home dose percocet 5-325 for her chronic pain of her osteoarthritis. No signs of redness / overlying warmth to noted pained joints. Pt notes only chronic pain in that area. Appreciate consult w/ Dr. Hand: to admit to his service. Disposition - Disposition Disposition Time: 17:11 Condition: STABLE Forms: [facility] (Tajik) - Clinical Impression Clinical Impression: Chest pain - Scribe Statement The provider has reviewed the documentation as recorded by the Scribe Jl Uriostegui Provider Attestation: All medical record entries made by the Scribe were at my direction and perso shon dictated by me. I have reviewed the chart and agree that the record accurately reflects my personal performance of the history, physical exam, medical decision making, and the department course for this patient. I have also personally directed, reviewed, and agree with the discharge instructions and disposition.
--- NOTE | 2018-10-19 15:46 | RAD ---
Date of service: 10/19/2018 HISTORY: cp COMPARISON: 03/18/2017 TECHNIQUE: 1 view obtained. FINDINGS: LUNGS: No active pulmonary disease. PLEURA: No significant pleural effusion identified, no pneumothorax apparent. CARDIOVASCULAR: There is presence of aortic atherosclerotic calcification on x-ray. Mild cardiomegaly-similar oval top-normal pulmonary vasculature. Dual lead pacemaker device in place. No change regarding it appreciated. OSSEOUS STRUCTURES: No significant abnormalities. VISUALIZED UPPER ABDOMEN: Normal. OTHER FINDINGS: None. IMPRESSION: No interval acute cardiopulmonary pathology noted. Findings as above.
[2018-10-19 16:17] LABS: BASO % 0.4 % (0.0-2.0); EOS # 0.3 K/uL (0.0-0.7); EOS % 2.9 % (0.0-4.0); HEMOGLOBIN 12.2 g/dL (11.0-16.0); LYMPH # 1.4 K/uL (1.0-4.3); LYMPH % 13.7 % (20.0-40.0); MEAN CELL VOLUME 88.4 fL (81.0-99.0); MEAN CORPUSCULAR HEMOGLOBIN 28.5 pg (27.0-31.0); MEAN CORPUSCULAR HGB CONC 32.3 g/dL (33.0-37.0); MEAN PLATELET VOLUME 8.9 fL (7.2-11.7); MONO # 0.9 K/uL (0.0-0.8); NEUT # 7.7 K/uL (1.8-7.0); RBC 4.28 Mil/uL (3.80-5.20); RED CELL DISTRIBUTION WIDTH 16.1 % (11.5-14.5); WHITE BLOOD COUNT 10.4 K/uL (4.8-10.8)
[2018-10-19 16:21] LABS: BLOOD UREA NITROGEN 25 mg/dL (7-17); CALCIUM 9.4 mg/dl (8.6-10.4); GFR NON-AFRICAN AMERICAN 50
[2018-10-19 16:33] LABS: B-TYPE NATRIURETIC PEPTIDE 587 pg/mL (0-900)
[2018-10-19 16:42] LABS: ALB/GLOB RATIO 1.1 (1.0-2.1); ALBUMIN 4.3 g/dL (3.5-5.0); ALT/SGPT 17 U/L (9-52); AST/SGOT 47 U/L (14-36)
[2018-10-19] MEDS ORDERED: Oxycodone/Acetaminophen 5/325 mg Tab PO STA (17:14)
[2018-10-19] MEDS: Sodium Chloride 0.9% 1,000 ML IV ONE ×2 (17:16→22:00)
[2018-10-19] MEDS ORDERED: Sodium Chloride 0.9% 1,000 ML ONE (17:23)
[2018-10-19] MEDS ORDERED: Oxycodone/Acetaminophen 5/325 mg Tab ONE (17:23)
--- NOTE | 2018-10-19 18:46 | CP.PCM.HP ---
Past Patient History - Past Medical History & Family History Past Medical History?: Yes - Past Social History Smoking Status: Never Smoked - CARDIAC Hx Cardia Arrhythmia: Yes (Pacemaker) Hx Hypertension: Yes Hx Pacemaker: Yes (2011) - PULMONARY Hx Bronchitis: Yes - NEUROLOGICAL Hx Neurological Disorder: Yes Hx Dizziness: Yes - HEENT Hx HEENT Problems: No - RENAL Hx Chronic Kidney Disease: No - ENDOCRINE/METABOLIC Hx Endocrine Disorders: No - HEMATOLOGICAL/ONCOLOGICAL Hx Blood Disorders: No - INTEGUMENTARY Hx Dermatological Problems: No - MUSCULOSKELETAL/RHEUMATOLOGICAL Hx Arthritis: Yes - GASTROINTESTINAL Hx Gastrointestinal Disorders: No - GENITOURINARY/GYNECOLOGICAL Hx Genitourinary Disorders: No - PSYCHIATRIC Hx Substance Use: No - SURGICAL HISTORY Other/Comment: pacemaker - ANESTHESIA Hx Anesthesia: Yes Hx Anesthesia Reactions: No Hx Malignant Hyperthermia: No Meds Allergies/Adverse Reactions: Allergies Allergy/AdvReac Type Severity Reaction Status Date / Time No Known Allergies Allergy Verified 05/19/17 09:32 Results - Vital Signs Recent Vital Signs: Last Vital Signs Temp 98 F 10/19/18 17:46 Pulse 63 10/19/18 17:46 Resp 18 10/19/18 17:46 BP 125/59 L 10/19/18 17:46 Pulse Ox 96 10/19/18 17:46 - Labs Result Diagrams: 10/19/18 16:00 10/19/18 16:00 Labs: Laboratory Results - last 24 hr 10/19/18 10/19/18 10/19/18 14:51 16:00 16:00 WBC 10.4 RBC 4.28 Hgb 12.2 D Hct 37.9 MCV 88.4 D MCH 28.5 MCHC 32.3 L RDW 16.1 H Plt Count 247 MPV 8.9 Neut % (Auto) 74.0 Lymph % (Auto) 13.7 L Chase % (Auto) 9.0 Eos % (Auto) 2.9 Baso % (Auto) 0.4 Neut # (Auto) 7.7 H Lymph # (Auto) 1.4 Chase # (Auto) 0.9 H Eos # (Auto) 0.3 Baso # (Auto) 0.0 Sodium 135 Potassium 4.2 Chloride 101 Carbon Dioxide 21 L Anion Gap 18 BUN 25 H Creatinine 1.1 Est GFR ( Amer) > 60 Est GFR (Non-Af Amer) 50 POC Glucose (mg/dL) 164 H Random Glucose 111 H Calcium 9.4 Total Bilirubin 0.8 AST 47 H D ALT 17 Alkaline Phosphatase 97 Troponin I < 0.0120 NT-Pro-B Natriuret Pep 587 Total Protein 8.2 Albumin 4.3 Globulin 3.9 Albumin/Globulin Ratio 1.1
[2018-10-20 01:09] LABS: CK-MB 0.48 ng/mL (0.0-3.38)
[2018-10-20 01:22] VITALS: RESP 20
[2018-10-20] MEDS ORDERED: Caffeine Citrated **INJ** 20 MG/ML IV ONE (08:40)
[2018-10-20] MEDS: Multivitamin With Minerals Tab PO SCH (12:20)
--- NOTE | 2018-10-20 14:37 | CARD ---
APPROVED REPORT Date of service: 10/19/2018 EKG Measurement Heart [id number] AZ [id number] [id number] <Conclusion> Normal sinus rhythm Normal ECG
--- NOTE | 2018-10-20 16:59 | CP.PCM.PN ---
Subjective - Date & Time of Evaluation Date of Evaluation: 10/20/18 Time of Evaluation: 16:59 Objective - Vital Signs/Intake and Output Vital Signs (last 24 hours): Temp Pulse Resp BP Pulse Ox 97.5 F L 75 20 133/77 97 10/20/18 15:30 10/20/18 15:30 10/20/18 15:30 10/20/18 15:30 10/20/18 15:30 Intake and Output: 10/20/18 10/20/18 06:59 18:59 Intake Total 530 750 Balance 530 750 - Medications Medications: Current Medications Aspirin (Ecotrin) 81 mg PO DAILY [facility] Last Admin: 10/20/18 12:56 Dose: Not Given Clopidogrel Bisulfate (Plavix) 75 mg PO DAILY [facility] Famotidine (Pepcid) 20 mg PO BID [facility] Folic Acid (Folic Acid) 1 mg PO DAILY [facility] Last Admin: 10/20/18 12:22 Dose: 1 mg Heparin Sodium (Porcine) (Heparin) 5,000 units SC Q12 [facility] Last Admin: 10/20/18 12:21 Dose: 5,000 units Hydrochlorothiazide (Hydrodiuril) 25 mg PO DAILY [facility] Last Admin: 10/20/18 12:21 Dose: 25 mg Losartan Potassium (Cozaar) 100 mg PO DAILY [facility] Last Admin: 10/20/18 12:21 Dose: 100 mg Multivitamins/Minerals (Therapeutic-M Tab) 1 tab PO DAILY [facility] Last Admin: 10/20/18 12:20 Dose: 1 tab Nebivolol (Bystolic) 2.5 mg PO DAILY [facility] Last Admin: 10/20/18 13:25 Dose: 2.5 mg - Labs Labs: 10/19/18 16:00 10/19/18 16:00
--- NOTE | 2018-10-20 20:16 | CARD ---
APPROVED REPORT Date of service: 10/20/2018 Protocol: LEXISCAN Test Type: LEXISCAN STRESS Test Indications: DIZZINESS CP[ Medical History: CP Target HR: 155 bpm Resting ECG: normal Resting Heart Rate: 67 bpm Resting Blood Pressure: 140/72mmHg submaximum (85%): 132 bpm TEST SUMMARY LXWALLLGPNUYIB90:01..1.065/.0. PREINFSNHYPERV.06:[id number]/72.0. INFUSIONDOSE 100:300.00.01.741155/72.0. PRVKBICKI56:[id number]/66.0. PROCEDURE Pharmacologic stress testing was performed using 0.4mg per 5ml of regadenoson given intravenously over 7-10 seconds. POST EXERCISE Reason for Termination: Protocol Completed Target HR: No Max HR: 68 bpm 58% of Maximum Predicted HR: 155 bpm Exercise duration: 00:30 min:sec, 0 Stage Exercise capacity: 1.0METs Max Blood Pressure: 140/72mmHg Blood Pressure response to exercise: normal resting BP - appropriate response Heart Rate response to exercise: appropriate Chest Pain: Yes, non-limiting Angina index: 0 Arrhythmia: No, none ST Change: No, none Deviation: 0 mm INTERPRETATION Stress EKG Conclusion: nuclear report to follow EXAM: Myocardial Perfusion REST/STRESS Imaging Protocol The imaging protocol used to acquire images was Rest Tc-99m/stress Tc-99m 1 day Rest Spect myocardial perfusion imaging was performed in supine position 45 minutes following the injection of 12.4 mCi of Tc-99 Myoview. Gated Stress Spect was performed 55 minutes after intravenous 32.5 mci Tc-99 Myoview injection. The images were gated to evaluate regional wall motion and calculate ventricular ejection fraction.Images were reconstructed using backfilter projection method in short horizontal and verticle long axis. Spect slices were generated. RESTING DATA EDV73.81ksJR7.40L/min ESV20.00mlMyocardial Risa173.00g Av. Heart Rate64.00bpm EF73.00% STRESS DATA EDV70.99tbUQ6.90L/min ESV17.00mlMyocardial Fxru178.00g EF76.00% Regional WT score at stress:1.00 Regional WM score at stress:0.00 Summed WT score at stress:1.00 Av. Heart Rate73.00bpmSummed WM score at stress:0.00 LV Perf. Quant 17 Seg. SSS1.00 17 Seg. SRS3.00 17 Seg. SDS0.00 Stress Defect Extent (% LAD)0.00Rest Defect Extent (% LAD)5.60Rev. Defect Extent (% LAD)0.00 Stress Defect Extent (% LCX)10.00Rest Defect Extent (% LCX)10.00Rev. Defect Extent (% LCX)10.00 Stress Defect Extent (% RCA)0.00Rest Defect Extent (% RCA)0.00Rev. Defect Extent (% RCA)0.00 Stress Defect Extent (% ZAY)2.20Rest Defect Extent (% ZAY)5.20Rev. Defect Extent (% ZAY)2.20 Other Information Quality:Good IMPRESSION Normal Myocardial Perfusion exercise stress study Left Ventricle LV Function:Left ventricle systolic function is normal. The Ejection Fraction is >70%. Metabolism/Perfusion There are no perfusion/metabolism defects. Conclusion 1. Normal Lexiscan Nuclear Stress Test. Normal EF.
--- NOTE | 2018-10-21 08:14 | CP.PCM.CON ---
History of Present Illness - History of Present Illness History of Present Illness: 63 y/o female,w/PMhx of HTN, cardiac arrhythmia ( with pacemaker), hypercholesterolemia, brought to ER by ALS for evaluation of chest pain and dizziness which occurred today.Patient states that the chest pain began at 1 pm. Patient reports that the pain is in the center of chest without radiation. She describes the pain as pressure-like. After she had the chest pain, she began having lightheadedness and pre-syncopal episode.She states that she did not have fall.She was brought in by ambulance and she was treated with ASA 325 mg PO and fluids. Patient reports that pain has mostly resolved. Denies having weakness, facial droop, slurred speech, fever,chills, neck stiffness, night sweats, nausea, vomiting, bowel/bladder incontinence, dark/bloody stools, urinary complaints, and genitourinary complaints. PMD: Assistant At Surgery: Chief Complaint (Nursing): Chest Pain History Per: Patient History/Exam Limitations: no limitations Onset/Duration Of Symptoms: Hrs Current Symptoms Are (Timing): Still Present Severity: Moderate Quality: Pressure Past Medical History Reviewed: Historical Data, Nursing Documentation, Vital Signs Vital Signs: Last Vital Signs Temp 97.5 F L 10/19/18 14:58 Pulse 60 10/19/18 14:58 Resp 18 10/19/18 14:58 BP 128/42 L 10/19/18 14:58 Pulse Ox 97 10/19/18 14:58 Primary Care Provider: Nathanael Christina - Medical History PMH: Arthritis, Bronchitis, Cardia Arrhythmia (Pacemaker), HTN Denies: Chronic Kidney Disease Surgical History: Endoscopy, Pacemaker (2011) - [facility] Procedures EXCISION OF L UP ARM SUBCU/FASCIA, OPEN APPROACH (03/23/17) Family History: States: No Known Family Hx - Social History Hx Alcohol Use: No Hx Substance Use: No Review Of Systems Except As Marked, All Systems Reviewed And Found Negative. Constitutional: Negative for: Fever, Chills, Sweats, Weakness Eyes: Negative for: Pain, Vision Change ENT: Negative for: Ear Pain, Ear Discharge, Nose Congestion, Mouth Pain Cardiovascular: Positive for: Chest Pain. Negative for: Palpitations Respiratory: Negative for: Cough, Shortness of Breath, SOB with Excertion Gastrointestinal: Negative for: Nausea, Vomiting, Abdominal Pain, Diarrhea, C onstipation, Melena, Hematochezia, Hematemesis Genitourinary: Negative for: Dysuria, Frequency, Incontinence, Hematuria, Vaginal Bleeding Musculoskeletal: Negative for: Neck Pain, Shoulder Pain, Arm Pain, Back Pain, Hand Pain, Leg Pain Skin: Negative for: Rash, Lesions Neurological: Positive for: Dizziness. Negative for: Weakness, Numbness, Change in Speech, Headache Physical Exam - Physical Exam Appears: Well, Non-toxic, No Acute Distress Skin: Normal Color, Warm, Dry Head: Atraumatic, Normacephalic Eye(s): bilateral: Normal Inspection, PERRL, EOMI Nose: Normal Oral Mucosa: Moist Neck: Normal, Normal ROM, No Midline Cervical Tenderness, No Paracervical Tenderness, Supple, Other (no meningeal signs) Chest: Symmetrical, Other (pacemaker is well-healed) Cardiovascular: Rhythm Regular Respiratory: Normal Breath Sounds, No Rales, No Rhonchi, No Wheezing Gastrointestinal/Abdominal: Normal Exam, Soft, No Tenderness, No Mass, No Distention, No Guarding, No Rebound Back: Normal Inspection, No CVA Tenderness, No Vertebral Tenderness Extremity: Normal ROM, No Tenderness, No Pedal Edema Neurological/Psych: Oriented x3, Normal Speech, Normal Cognition, No Cerebellar Signs, Normal Motor, Normal Sensation Extremity: Right: No Drift, Left: No Drift Past Patient History - Past Medical History & Family History Past Medical History?: Yes - Past Social History Smoking Status: Never Smoked - CARDIAC Hx Cardia Arrhythmia: Yes (Pacemaker) Hx Hypertension: Yes Hx Pacemaker: Yes (2011) - PULMONARY Hx Bronchitis: Yes - NEUROLOGICAL Hx Neurological Disorder: Yes Hx Dizziness: Yes - HEENT Hx HEENT Problems: No - RENAL Hx Chronic Kidney Disease: No - ENDOCRINE/METABOLIC Hx Endocrine Disorders: No - HEMATOLOGICAL/ONCOLOGICAL Hx Blood Disorders: No - INTEGUMENTARY Hx Dermatological Problems: No - MUSCULOSKELETAL/RHEUMATOLOGICAL Hx Arthritis: Yes - GASTROINTESTINAL Hx Gastrointestinal Disorders: No - GENITOURINARY/GYNECOLOGICAL Hx Genitourinary Disorders: No - PSYCHIATRIC Hx Substance Use: No - SURGICAL HISTORY Other/Comment: pacemaker - ANESTHESIA Hx Anesthesia: Yes Hx Anesthesia Reactions: No Hx Malignant Hyperthermia: No Meds Allergies/Adverse Reactions: Allergies Allergy/AdvReac Type Severity Reaction Status Date / Time No Known Allergies Allergy Verified 05/19/17 09:32 - Medications Medications: Current Medications Aspirin (Ecotrin) 81 mg PO DAILY [facility] Last Admin: 10/20/18 12:56 Dose: Not Given Clopidogrel Bisulfate (Plavix) 75 mg PO DAILY [facility] Famotidine (Pepcid) 20 mg PO BID [facility] Last Admin: 10/20/18 17:05 Dose: 20 mg Folic Acid (Folic Acid) 1 mg PO DAILY [facility] Last Admin: 10/20/18 12:22 Dose: 1 mg Heparin Sodium (Porcine) (Heparin) 5,000 units SC Q12 [facility] Last Admin: 10/20/18 21:35 Dose: 5,000 units Hydrochlorothiazide (Hydrodiuril) 25 mg PO DAILY [facility] Last Admin: 10/20/18 12:21 Dose: 25 mg Losartan Potassium (Cozaar) 100 mg PO DAILY [facility] Last Admin: 10/20/18 12:21 Dose: 100 mg Multivitamins/Minerals (Therapeutic-M Tab) 1 tab PO DAILY [facility] Last Admin: 10/20/18 12:20 Dose: 1 tab Nebivolol (Bystolic) 2.5 mg PO DAILY [facility] Last Admin: 10/20/18 13:25 Dose: 2.5 mg Results - Vital Signs Recent Vital Signs: Last Vital Signs Temp 97.4 F L 10/20/18 23:50 Pulse 68 10/21/18 04:30 Resp 20 10/20/18 23:50 BP 138/74 10/20/18 23:50 Pulse Ox 95 10/20/18 23:50 - Labs Result Diagrams: 10/19/18 16:00 10/19/18 16:00 Labs: Laboratory Results - last 24 hr 10/20/18 08:21 Total Creatine Kinase 38 CK-MB (Mass) 0.90 Troponin I < 0.0120 Assessment & Plan - Assessment and Plan (Free Text) Assessment: 63 F with multiple cardiac risk factors and chest pain Trop x 1 negative EKG un remarkable Stress test in am
--- NOTE | 2018-10-21 08:16 | CP.PCM.PN ---
Subjective - Date & Time of Evaluation Date of Evaluation: 10/20/18 Time of Evaluation: 18:40 - Subjective Subjective: Normal stress test Normal EF Trop x 3 negative Medical mgt for HTN and DM 2 Thank you Objective - Vital Signs/Intake and Output Vital Signs (last 24 hours): Temp Pulse Resp BP Pulse Ox 97.4 F L 68 20 138/74 95 10/20/18 23:50 10/21/18 04:30 10/20/18 23:50 10/20/18 23:50 10/20/18 23:50 Intake and Output: 10/21/18 10/21/18 06:59 18:59 Intake Total 400 Balance 400 - Medications Medications: Current Medications Aspirin (Ecotrin) 81 mg PO DAILY [facility] Last Admin: 10/20/18 12:56 Dose: Not Given Clopidogrel Bisulfate (Plavix) 75 mg PO DAILY [facility] Famotidine (Pepcid) 20 mg PO BID [facility] Last Admin: 10/20/18 17:05 Dose: 20 mg Folic Acid (Folic Acid) 1 mg PO DAILY [facility] Last Admin: 10/20/18 12:22 Dose: 1 mg Heparin Sodium (Porcine) (Heparin) 5,000 units SC Q12 [facility] Last Admin: 10/20/18 21:35 Dose: 5,000 units Hydrochlorothiazide (Hydrodiuril) 25 mg PO DAILY [facility] Last Admin: 10/20/18 12:21 Dose: 25 mg Losartan Potassium (Cozaar) 100 mg PO DAILY [facility] Last Admin: 10/20/18 12:21 Dose: 100 mg Multivitamins/Minerals (Therapeutic-M Tab) 1 tab PO DAILY [facility] Last Admin: 10/20/18 12:20 Dose: 1 tab Nebivolol (Bystolic) 2.5 mg PO DAILY [facility] Last Admin: 10/20/18 13:25 Dose: 2.5 mg - Labs Labs: 10/19/18 16:00 10/19/18 16:00
[2018-10-21] MEDS: Multivitamin With Minerals Tab PO SCH (10:25)
--- NOTE | 2018-10-21 15:42 | CP.PCM.PN ---
Subjective - Date & Time of Evaluation Date of Evaluation: 10/21/18 Time of Evaluation: 15:42 - Subjective Subjective: PATIENT SEEN AND EXAMINED AT THE BEDSIDE Objective - Vital Signs/Intake and Output Vital Signs (last 24 hours): Temp Pulse Resp BP Pulse Ox 97.9 F 78 20 122/80 96 10/21/18 07:00 10/21/18 07:00 10/21/18 07:00 10/21/18 07:00 10/21/18 11:24 Intake and Output: 10/21/18 10/21/18 06:59 18:59 Intake Total 400 Balance 400 - Medications Medications: Current Medications Aspirin (Ecotrin) 81 mg PO DAILY [facility] Last Admin: 10/21/18 10:26 Dose: 81 mg Clopidogrel Bisulfate (Plavix) 75 mg PO DAILY [facility] Last Admin: 10/21/18 10:24 Dose: 75 mg Famotidine (Pepcid) 20 mg PO BID [facility] Last Admin: 10/21/18 10:25 Dose: 20 mg Folic Acid (Folic Acid) 1 mg PO DAILY [facility] Last Admin: 10/21/18 10:26 Dose: 1 mg Heparin Sodium (Porcine) (Heparin) 5,000 units SC Q12 [facility] Last Admin: 10/21/18 10:26 Dose: 5,000 units Hydrochlorothiazide (Hydrodiuril) 25 mg PO DAILY [facility] Last Admin: 10/21/18 10:25 Dose: 25 mg Losartan Potassium (Cozaar) 100 mg PO DAILY [facility] Last Admin: 10/21/18 10:26 Dose: 100 mg Multivitamins/Minerals (Therapeutic-M Tab) 1 tab PO DAILY [facility] Last Admin: 10/21/18 10:25 Dose: 1 tab Nebivolol (Bystolic) 2.5 mg PO DAILY [facility] Last Admin: 10/21/18 10:25 Dose: 2.5 mg - Labs Labs: 10/19/18 16:00 10/19/18 16:00 Assessment and Plan - Assessment and Plan (Free Text) Assessment: FOLLOW UP WITH DR MELCHOR IN HIS OFFICE F/U WITH PMD AND IRRIGATION TECHNICIAN OUT PATIENT FOLLOW UP WITH DR LEWIS IN HIS OFFICE CONTINUE HOME MEDICATION ACTIVITY TOLERATED CALL DR MELCHOR OR GO TO THE EMERGENCY ROOM IF SYMPTOM RETURN RO WORSENING
[2018-10-21 17:05] VITALS: BP 139/85
[2018-10-21 17:46] VITALS: PULSE 86; TEMP 98.8; O2SAT 97
== END 2018-10-21 19:35 | disposition home or self-care (01) ==
LOC: C.ER 14:34 → C.9E 17:08 → C.6T 18:32
PROVIDERS: ADMIT Internal Medicine Critical Care Medicine; ATTEND Internal Medicine Critical Care Medicine
DX: R07.9 Chest pain, unspecified (principal); I10 Essential (primary) hypertension; E78.00 Pure hypercholesterolemia, unspecified; E11.9 Type 2 diabetes mellitus without complications; R29.810 Facial weakness; R32 Unspecified urinary incontinence; Z95.0 Presence of cardiac pacemaker
CPT/HCPCS: 36415; 71045; 78452; 80053; 82948; 83880; 84484; 85025; 93005; 93017; 97116; 97162; 99285; A9502; G0378; G8978; G8979; J1644; J2785; J7030